=== PATIENT | female | born 1970 | race Caucasian/White ===

== ENCOUNTER 2022-07-02 21:50 | Emergency (ER) | payer OTHER, SELFPAY ==
[2022-07-02 22:54] VITALS: BP 150/106; PULSE 99; RESP 15; TEMP 36.1; O2SAT 99; BMI 36.3
--- NOTE | 2022-07-03 00:31 | W.ED.BACK ---
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 Patient states that she has been working over with x-ray and has been lifting patients on CT states last 3 days she is lifted large patients she states today at 4 there was a 600 pound individual she did lift over the table and strained her left lower back she states has been having worsening pain since then that is in her left back its worse with movement has some pain down her leg states her pain currently is a 6 out of 10 denies any bowel or bladder incontinence. Associated symptoms: Deny abdominal pain, chills, dysuria, fever(s), nausea or vomiting Review of Systems Const: Denies: fever(s), chills, body aches or change in appetite Eyes: Denies: blurry vision or eye discomfort ENMT: Denies: throat pain or dental pain Card: Denies: chest pain Resp: Denies: dyspnea GI: Denies: abdominal pain, nausea, vomiting or diarrhea : Denies: dysuria Musc: Reports: back pain Skin/Breast: Denies: rash Neuro: Denies: headache(s) Psych: Denies: depression Aubrey/Lymph: Denies: easy bruising All/Imm: Denies: urticaria PFSH ED PFSH: Medical History Essential hypertension History of COVID-19 Multiple sclerosis Surgical History History of bilateral tubal ligation History of knee surgery right Family History Grandmother Cancer Father Diabetes Hypertension Chronic kidney disease (CKD) CAD (coronary artery disease) Other Anesthesia complication Denies family history of Stroke Social History Smoking and tobacco status: never smoked Second hand smoke exposure: No Smoking risk assessment/counseling performed?: No Alcohol intake: never Desire information about alcohol rehabilitation?: No Counseling given: No Desire information about substance/drug rehabilitation?: No Counseling given: No Adopted: No Caregiver/support person: No Lives independently: Yes Household members: spouse Housing: House Marital status: Number of children: 3 Highest education level completed: High School Graduate service: No Current occupational status: employed Current occupation: [employer] Pets and animals: Yes Pets & animals: cat(s) and dog(s) History of recent travel: No Current gender identity: Female Physical Exam Const: COMMON NORMALS: no acute distress and patient oriented x3 HENMT: COMMON NORMALS: normocephalic and atraumatic HEAD & SCALP: normocephalic and atraumatic Eye: COMMON NORMALS: conjunctivae normal CONJUNCTIVA: Yes conjunctivae normal Neck/C-Spine: COMMON NORMALS: supple Chest: COMMONS NORMALS: normal inspection of the chest Resp: COMMON NORMALS: normal respiratory effort Cardio: COMMON NORMALS: regular rate RATE: regular rate GI: INSPECTION: Yes normal to inspection Back/Pelvis: OTHER: No midline tenderness she does have tenderness along left lower lumbar region no saddle anesthesia Extremity: COMMON NORMALS: normal to inspection and full ROM Neuro: COMMON NORMALS: patient oriented x3 Psych: COMMON NORMALS: mental status grossly normal Skin: COMMON NORMALS: no rashes or lesions noted GENERAL SKIN EXAM: no rashes or lesions noted Course Vital Signs: Vital signs: Vital Signs Temperature 97.0 F L 07/02/22 22:54 Pulse Rate 99 07/02/22 22:54 Respiratory Rate 15 07/02/22 22:54 Blood Pressure 150/106 07/02/22 22:54 Pulse Oximetry 99 07/02/22 22:54 Oxygen Delivery Me thod 07/02/22 22:54 MDM - Back Pain/Injury Medical Decision Making Patient presents here with a lumbar strain from lifting a large patient. She has no signs of cord compression she has no saddle anesthesia we will give her Decadron here along with pain medicine will prescribe her hydrocodone Naprosyn and Robaxin for home we will get her follow-up with Dr. Rogers she is return if worsening she understands agrees to plan. Discharge Plan Discharge Patient Disposition: Home Clinical Impression: Strain of lumbar region Condition: Stable Prescriptions: New hydrocodone-acetaminophen 5-325 mg tablet 1 tab PO Q6H PRN (Reason: pain) Qty: 14 0RF methocarbamol 750 mg tablet 750 mg PO Q6H PRN (Reason: spasms) Qty: 20 0RF Naprosyn 500 mg tablet 500 mg PO BID PRN (Reason: pain) Qty: 20 0RF No Action meloxicam 15 mg tablet 15 mg PO DAILY lisinopril 10 mg tablet 10 mg PO DAILY Qty: 90 1RF cefuroxime axetil 500 mg tablet 500 mg PO BID Qty: 20 0RF Probiotic Digestive Care 20 billion cell capsule See Rx Instructions PO .2 times day Qty: 60 2RF Rx Instructions: 20 billion cell PO .2 times day; promethazine-DM 6.25-15 mg/5 mL syrup 5 ml PO Q6H PRN (Reason: cough) Qty: 120 0RF wzstwmwb-efalvfelm-NZ 3.5-10,000-1 mg/mL-unit/mL-% drops,suspension 4 drp otic (ear) TID 10 Days Qty: 10 0RF Rx Instructions: Left ear Ozempic 0.25 mg or 0.5 mg(2 mg/1.5 mL) pen injector 0.5 mg SUBCUT .weekly Qty: 1.5 0RF Discharge Orders: Discharge ED (Routine); Ordered 07/03/22 Ordered By: Lena Rain Referrals: Jose Roberto Rogers DO [Physician] - 1-3 days Sathish Armenta FNP-C [Primary Care Provider] - Discharge Diet: Advance as tolerated Discharge Activity: Resume usual activity Patient Instructions: Low Back Strain (ED), Opioid Safety, Pain Management Coding Level of Care Code ED [employer] for Beatriz Lou
[2022-07-03 00:39] VITALS: RESP 17
[2022-07-03] MEDS: HYDROcodone-acetaminophen 5-325 mg Tablet 1 TAB PO (00:39)
[2022-07-03] MEDS: dexamethasone 10 mg/mL INJ IM (00:39)
--- NOTE | 2022-07-07 11:16 | DCPLANNER ---
Addendum entered by Rashmi Khan 09/04/22 14:17: Patient had a follow up appointment scheduled with ortho - patient did attend appointment Addendum entered by Rashmi Khan 07/16/22 13:33: Patient has a follow up appointment scheduled for , July 23, 2022 at 8:[address] Rogers at ortho. Clinic will call patient with appointment information. Original Note: disability manager had message to schedule a follow up appointment for patient with ortho. disability manager sent patients information to the front office staff at ortho. Patients information will be printed and reviewed. Clinic will call patient with appointment information.
== END 2022-07-03 00:39 | disposition home or self-care (01) ==
PROVIDERS: Emergency Provider Emergency Medicine; PCP Nurse Practitioner
DX: S39.012A Strain of muscle, fascia and tendon of lower back, initial encounter (principal); X50.0XXA Overexertion from strenuous movement or load, initial encounter; Y93.F2 Activity, caregiving, lifting; Y99.0 Civilian activity done for income or pay; Y92.238 Other place in hospital as the place of occurrence of the external cause; I10 Essential (primary) hypertension; G35 Multiple sclerosis
CPT/HCPCS: 96372; 99284; J1100

== ENCOUNTER 2022-07-09 16:41 | Outpatient (CLI) | payer OTHER, SELFPAY ==
--- NOTE | 2022-07-09 10:45 | CT_ITS ---
WS: [id number] CT of the lumbar spine, additional two-dimensional coronal and sagittal imaging was obtained. 07/09/20 22 Clinical Data: worsening pain w left radiculopathy Comparison: None. DLP: 1523.[address] scans at [facility] use at least one of these dose optimization techniques: automated e xposure control; mA and/or kV adjustment per patient size (includes targeted exams where dose is matc hed to clinical indication); or iterative reconstruction. Findings: No compression fractures are seen. There is degenerative disc narrowing at T12-L1, L1-L2 an d L2-L3 with accompanying anterior osteophyte formation. There is facet joint arthritis noted from L3 -L4 to L5-S1 The transverse processes and SI joints are unremarkable. The paraspinal soft tissues ar e normal. T12-L1: There is minimal disc bulging. No foraminal stenosis or canal stenosis is seen. L1-L2: There is broad-based disc bulging. No canal or foraminal stenosis is seen. L2-L3: There is broad-based disc bulging. No canal or foraminal stenosis is present. Facet joint arthritis from L3-L4 to L5-S1 L3-L4: No canal stenosis, disc bulge or foraminal narrowing is seen. L4-L5: There is a broad-based disc bulge with canal and foraminal stenosis L5-S1: There is broad-based disc bulge or canal and foraminal stenosis. CT/CT lumbar spine wo con* [id number] Impression: 1. Degenerative disc narrowing at multiple upper levels with accompanying osteo phyte formation. 2. Multilevel broad-based disc bulging with accompanying canal and foraminal st enosis at several levels. 3.
== END 2022-07-09 16:42 | disposition home or self-care (01) ==
PROVIDERS: PCP Nurse Practitioner; Visit Provider Family Medicine
DX: M51.16 Intervertebral disc disorders with radiculopathy, lumbar region (principal); M25.78 Osteophyte, vertebrae
CPT/HCPCS: 72131

== ENCOUNTER → 2022-07-23 08:55 | Outpatient (BNVA) | payer OTHER, SELFPAY | PROVIDERS: PCP Nurse Practitioner; Referring Provider Family Medicine; Visit Provider Orthopaedic Surgery | DX: M41.9 Scoliosis, unspecified (principal); M47.816 Spondylosis without myelopathy or radiculopathy, lumbar region | CPT/HCPCS: 72110 ==

== ENCOUNTER 2022-08-19 09:03 | Outpatient (CLI) | payer OTHER, SELFPAY ==
--- NOTE | 2022-08-19 09:30 | MR_ITS ---
WS: [id number] MRI LUMBAR SPINE NONCONTRAST HISTORY: back pain, SI joint pain COMPARISON: CT 07/09/2022 TECHNIQUE: Sagittal and axial multisequence imaging is submitted. Mild degenerative disc disease in the cervical and thoracic spines. Several small disc protrusions or bulges. The largest at T10-11 without contact on the cord. Increase in the lumbar lordosis. Mild narrowing of the disc spaces negative the thoracolumbar junctio n. No marrow edema or fracture. Sacral cyst posterior to S2. Nerve root sleeve diverticulum bilateral foramina at T11-12 and on the R IGHT at T10-11. Conus terminates normally at L1-2 disc level. T12-L1: Shallow RIGHT paracentral disc protrusion. No stenosis. L1-L2: Mild annular disc bulging without stenosis. L2-L3: Mild facet joint arthritis. No stenosis. L3-L4: Mild facet and ligamentum flavum hypertrophy. No stenosis. L4-L5: Very mild disc bulging and osteophytosis. Annular fissure is broad-based in the RIGHT foramen. Moderate ligamentum flavum and facet arthritis encroaching into the thecal sac. Mild central, bilate ral subarticular recess and foraminal stenosis. There is very minimal disc contact on the inferior macedo rface of the exiting RIGHT L4 nerve root. Mild encroachment upon the traversing L5 nerve roots. L5-S1: Mild disc bulging with a central disc protrusion. Very minimal contact on the LEFT S1 nerve ro ot. No high-grade stenosis. MR/MR lumbar spine wo con* [id number] IMPRESSION: 1. No high-grade central or foraminal stenosis. 2. Mild central, bilateral subarticular recess and foraminal stenosis at L4-5 due to disc disease and facet joint arthritis. 3. Minimal disc contact along the inferior surface of the exiting RIGHT L4 ner ve root and on the traversing L5 nerve roots at the L4-5 level. 4. Very minimal disc contact on the LEFT S1 nerve root at L5-S1.
== END 2022-08-19 09:04 | disposition home or self-care (01) ==
LOC: RAD 09:03
PROVIDERS: PCP Nurse Practitioner; Visit Provider Orthopaedic Surgery
DX: M51.16 Intervertebral disc disorders with radiculopathy, lumbar region (principal)
CPT/HCPCS: 72148

== ENCOUNTER → 2024-08-24 13:17 | Outpatient (BNVA) | payer SELFPAY | PROVIDERS: PCP Nurse Practitioner; Visit Provider Clinical Nurse Specialist Adult Health | DX: N39.0 Urinary tract infection, site not specified (principal) | CPT/HCPCS: 81000; 87086 ==

== ENCOUNTER → 2024-11-02 09:21 | Outpatient (BNVA) | payer OTHER, SELFPAY | PROVIDERS: PCP Nurse Practitioner; Visit Provider Nurse Practitioner | DX: I10 Essential (primary) hypertension (principal); E55.9 Vitamin D deficiency, unspecified | CPT/HCPCS: 80053; 80061; 82306; 82607; 84443 ==

== ENCOUNTER → 2024-11-29 08:43 | Outpatient (BNVA) | payer OTHER, SELFPAY | PROVIDERS: PCP Nurse Practitioner; Visit Provider Student in an Organized Health Care Education/Training Program | DX: T84.84XA Pain due to internal orthopedic prosthetic devices, implants and grafts, initial encounter (principal); Z96.651 Presence of right artificial knee joint; R03.0 Elevated blood-pressure reading, without diagnosis of hypertension; X58.XXXA Exposure to other specified factors, initial encounter | CPT/HCPCS: 73560; 73565 ==

== ENCOUNTER → 2025-04-23 09:18 | Outpatient (BNVA) | payer OTHER, SELFPAY | PROVIDERS: PCP Nurse Practitioner; Visit Provider Nurse Practitioner | DX: I10 Essential (primary) hypertension (principal) | CPT/HCPCS: 80053 ==

== ENCOUNTER 2025-07-16 10:48 | Outpatient (CLI) | payer OTHER, SELFPAY ==
--- NOTE | 2025-07-16 10:53 | MM_ITS ---
WS: [id number] BILATERAL SCREENING DIGITAL TOMOSYNTHESIS MAMMOGRAM WITH CAD HISTORY: SCREENING COMPARISON: None available. Bilateral CC and MLO views with tomosynthesis and synthetic mammography submitted. Computer aided detection analyzed. Breast composition: The breasts are almost entirely fatty. No suspicious masses, microcalcifications or architectural distortion. Bilateral intramammary lymph nodes in the upper outer quadrants of each breast. Scattered benign calcifications. MM/MM scr BI tomosynthesis [id number] IMPRESSION: BI-RADS: 2 - Benign. FOLLOW UP: 1 Year Follow-up
== END 2025-07-16 10:49 | disposition home or self-care (01) ==
LOC: RAD 10:49
PROVIDERS: PCP Nurse Practitioner; Visit Provider Nurse Practitioner
DX: Z12.31 Encounter for screening mammogram for malignant neoplasm of breast (principal); R92.313 Mammographic fatty tissue density, bilateral breasts; R92.1 Mammographic calcification found on diagnostic imaging of breast; R59.9 Enlarged lymph nodes, unspecified
CPT/HCPCS: 77063; 77067

== ENCOUNTER → 2025-07-25 13:11 | Outpatient (BNVA) | payer OTHER, SELFPAY | PROVIDERS: PCP Nurse Practitioner; Visit Provider Student in an Organized Health Care Education/Training Program | DX: M25.562 Pain in left knee (principal); Z01.89 Encounter for other specified special examinations; M17.12 Unilateral primary osteoarthritis, left knee | CPT/HCPCS: 73560; 73565 ==

== ENCOUNTER → 2025-07-30 09:36 | Outpatient (BNVA) | payer OTHER, SELFPAY | PROVIDERS: PCP Nurse Practitioner; Visit Provider Family Medicine | DX: N39.0 Urinary tract infection, site not specified (principal) | CPT/HCPCS: 81000 ==

== ENCOUNTER 2025-08-20 09:47 | Outpatient (CLI) | payer OTHER, SELFPAY ==
--- NOTE | 2025-08-20 10:00 | CT_ITS ---
WS: [id number] CT LEFT knee, noncontrast HISTORY: LEFT TOTAL KNEE ARTHROPLASTY TECHNIQUE: Protocol for [facility] total knee replacement has been obtained. This includes axial imaging through the LEFT hip, LEFT knee and LEFT ankle. DLP: 957.22 mGy.cm COMPARISON: 07/25/2025 LEFT hip: Mild narrowing of the hip joint. No fracture. Bilateral tubal ligation clips. LEFT knee: Moderate tricompartment osteoarthritis. Large marginal osteophytes with narrowing of the joint spaces. No significant joint effusion. LEFT ankle: Unremarkable. CT/CT knee LT [facility] [id number] IMPRESSION: CT imaging provided for [facility] robotic total knee replacement.
== END 2025-08-20 09:48 | disposition home or self-care (01) ==
LOC: RAD 09:47
PROVIDERS: PCP Nurse Practitioner; Visit Provider Student in an Organized Health Care Education/Training Program
DX: M17.12 Unilateral primary osteoarthritis, left knee (principal); Z96.652 Presence of left artificial knee joint
CPT/HCPCS: 73700

== ENCOUNTER → 2025-08-26 16:38 | Outpatient (BNVA) | payer OTHER, MEDICAID, SELFPAY | PROVIDERS: PCP Nurse Practitioner; Visit Provider Emergency Medicine | DX: S99.921A Unspecified injury of right foot, initial encounter (principal); X58.XXXA Exposure to other specified factors, initial encounter | CPT/HCPCS: 73630 ==